=== PATIENT | female | born 1975 | race Caucasian/White ===

== ENCOUNTER 2023-03-25 07:14 | Inpatient (IN) ==
--- NOTE | 2023-03-05 12:28 | PAT Medication Instructions ---
Medication Instructions Date of Service March 05, 2023 Home Medications Medication Instructions Recorded oxycodone 5 mg tablet 5 mg PO Q6H PRN pain, severe #20 09/02/22 tabs tramadol 50 mg tablet 50 mg PO Q6H PRN pain, moderate 09/02/22 #20 tabs gabapentin 100 mg capsule (Neurontin) 200 mg PO BID gabapentin 300 mg capsule 300 mg PO QPM lamotrigine 150 mg tablet (Lamictal) 150 mg PO AMHS lamotrigine 25 mg tablet (Lamictal) 25 mg PO HS topiramate 100 mg tablet 100 mg PO AMHS topiramate 25 mg tablet 25 mg PO HS ubrogepant 50 mg tablet (Ubrelvy) 50 mg PO HS PRN donepezil 10 mg tablet (Aricept) 10 mg PO BID naproxen 500 mg tablet 500 mg PO BID verapamil 240 mg tablet,extended release 240 mg PO QPM oxycodone 5 mg tablet 5 mg PO Q6H PRN tramadol 50 mg tablet 50 mg PO Q6H PRN ASK your surgeon for instructions naproxen 500 mg tablet 500 mg PO BID DO NOT take the morning of surgery donepezil 10 mg tablet (Aricept) 10 mg PO BID Take morning of surgery With a small sip of water, OTHERWISE NOTHING TO EAT OR DRINK AFTER MIDNIGHT: gabapentin 100 mg capsule (Neurontin) 200 mg PO BID lamotrigine 150 mg tablet (Lamictal) 150 mg PO AMHS topiramate 100 mg tablet 100 mg PO AMHS oxycodone 5 mg tablet 5 mg PO Q6H PRN(if needed) tramadol 50 mg tablet 50 mg PO Q6H PRN(if needed) Take evening before surgery gabapentin 100 mg capsule (Neurontin) 200 mg PO BID gabapentin 300 mg capsule 300 mg PO QPM lamotrigine 150 mg tablet (Lamictal) 150 mg PO AMHS lamotrigine 25 mg tablet (Lamictal) 25 mg PO HS topiramate 100 mg tablet 100 mg PO AMHS topiramate 25 mg tablet 25 mg PO HS ubrogepant 50 mg tablet (Ubrelvy) 50 mg PO HS PRN(if needed) donepezil 10 mg tablet (Aricept) 10 mg PO BID verapamil 240 mg tablet,extended release 240 mg PO QPM oxycodone 5 mg tablet 5 mg PO Q6H PRN(if needed) tramadol 50 mg tablet 50 mg PO Q6H PRN(if needed) Other Notes If you have any questions please call us at [phone] or [phone] or [phone] or [phone]
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
[~2023-03-25 07:14] MED LIST: ACETAMINOPHEN 500 MG TAB PO SCH; CLINDAMYCIN/D5W 900 MG/50 ML BAG IV SCH; CeleBREX 200 MG CAP PO SCH; GABAPENTIN 900 MG DOSE PO SCH; LR 15ML/HR IV SCH
[2023-03-25] MEDS ORDERED: DEXAMETHASONE SOD INJ 4 MG/ML VIAL ONE (08:40)
[2023-03-25] MEDS ORDERED: fentaNYL citrate PF 100 MCG/2 ML VIAL ONE (08:40)
[2023-03-25] MEDS ORDERED: LIDOCAINE 2% 2 ML VIAL/AMP(20MG/ML) INFIL ONE (08:40)
[2023-03-25] MEDS ORDERED: MIDAZOLAM HCL 1 MG/ML 2ML VIAL ONE (08:40)
[2023-03-25] MEDS ORDERED: ONDANSETRON INJ 2 MG/ML 2 ML VIAL ONE ×2 (08:40→11:33)
[2023-03-25] MEDS ORDERED: ROCURONIUM BROMIDE 10 MG/ML 5 ML VIAL IV ONE (08:40)
[2023-03-25] MEDS ORDERED: PROPOFOL IV EMULSION 10 MG/ML 20 ML VIAL IV ONE (08:40)
[2023-03-25] MEDS ORDERED: ePHEDrine sulfate 50 MG/ML AMP IV PRN (09:00)
[2023-03-25] MEDS ORDERED: fentaNYL citrate PF 100 MCG/2 ML VIAL IV PRN (09:00)
[2023-03-25] MEDS ORDERED: ONDANSETRON INJ 2 MG/ML 2 ML VIAL IV PRN ×2 (09:00→13:12)
[2023-03-25] MEDS ORDERED: ATROPINE SULFATE 0.1 MG/ML 10ML SYR IV PRN (09:00)
[2023-03-25] MEDS ORDERED: PROMETHAZINE HCL 6.25 MG in SODIUM CHLORIDE 0.9% 50 ML IV PRN (09:00)
--- NOTE | 2023-03-25 09:19 | History & Physical Bridge Note ---
Date of Service March 25, 2023 History & Physical Bridge Note I have examined the patient, reviewed the History & Physical and in the interval since the performance of the History & Physical I have noted the following changes of clinical significance: no changes noted
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
[2023-03-25] MEDS ORDERED: ceFAZolin 330 MG/ML 1 GM VIAL ONE (09:23)
[2023-03-25] MEDS ORDERED: BUPIVACAINE/EPINEPHRINE 0.25% 1:200,000 30 ML VIAL ONE (09:23)
[2023-03-25] MEDS ORDERED: FLOSEAL HEMOSTATIC MATRIX 10ML TOP ONE (11:03)
[2023-03-25] MEDS ORDERED: ePHEDrine sulfate 50 MG/ML AMP ONE (11:21)
[2023-03-25] MEDS ORDERED: SUGAMMADEX SODIUM 200 MG/2 ML VIAL IV ONE (11:33)
[2023-03-25] MEDS ORDERED: SURGICEL ABSORB HEMOSTAT 2IN X 14IN TOP ONE (11:42)
--- NOTE | 2023-03-25 11:49 | Operative Report ---
Post Operative Report Pre & Post Diagnosis Operation Date: 03/25/23 08:55 Pre-Op Diagnosis: Recurrent disc herniation L5-S1. Spinal stenosis L4-L5. Post-Op Diagnosis: Same I identified the patient and participated in the time-out.: Yes Procedure Operation Date: 03/25/23 08:55 Actual Procedures #1 revision decompression bilaterally facetectomies and foraminotomies L4-L5 L5- S1. #2 posterior spinal fusion L4-L5 L5-S1. #3 placed posterior instrumentation L4-L5 L5-S1. #4 interbody fusion L4-L5 L5-S1. #5 placement of Spira 13 x 26 mm at L4-L5 and 11 x 26 mm at L5-S1. #6 placement locally harvested morselized autograft in the posterior gutters. #7 placement of I factor amount of detox in the interbody space and posterior lateral gutters. Surgeon Cruz Garcia, Musculoskeletal Physiotherapist Nadege Cote Estimated Blood Loss 150 Findings See Below Patient is 5 foot 2 weighing over 82 kg with a BMI in excess of 33. Patient's body habitus did contribute to significant technical difficulty required deeper retractors and longer instruments in order to perform her procedure. This had at least 50% increased operative time. Specimens None Indications This is a 47-year-old female who presents above-mentioned diagnosis after failing an extensive course of nonoperative care is here for surgical invention. Description of Procedure Patient met with identified informed consent obtained. Patient was then taken to the operative suite underwent patient placed in a prone position on the Liberty table top Robinson frame. All bony promises well-padded eyes inspected to ensure no external pressure placed upon the. This point the lumbar spine was prepped and draped in a sterile fashion. Sharp dissection with the assistance pericardial down to and exposing the remaining lamina and transverse processes of L4-5 and sacral ala bilaterally. From caudal septal fashion revision complete laminectomy L5 L4 was performed including medial facetectomies and foraminotomies addressing all stenosis as well as evidence of a massive disc herniation L5-S1 on the right with significant pressure on the traversing and exiting root. After complete decompression removal of fragments pedicle screws were placed in L4-L5 and S1 levels bilaterally with the assistance of fluoros copy the proper sized kalpesh placed. By way of a transforaminal approach on the right complete discectomy of L5-S1 was performed endplates curetted to subcortically bone and 11 x 26 mm Spira cage with I factor tapped in position. Then proceeded to L4-L5 again by way of entrance foraminal approach and right complete discectomy performed endplates guided to subcortically bone and a 13 x 26 mm Spira cage with I factor tapped in position. The rods were then locked in final position bilaterally. The transverse processes of L4-5 and the sacral ala burred to subcortically bone. I factor by the test and locally harvested morselized autograft was placed in the posterior gutters. 15 round RAJIV drain inserted. The incision was then closed with 1 Vicryl to fascia 2-0 Vicryl subcutaneously and 4 Monocryl for final skin closure. Steri-Strips sterile dressing placed. Patient waken taken to PACU stable condition please note spinal cord monitoring was utilized at the procedure no changes noted. Lastly Nadege Cote was present at the entire surgeon while the patient positioning complex portion of the surgery and final skin closure. I attest to the content of the Intraoperative Record and any orders documented therein. Any exceptions are noted below.
--- NOTE | 2023-03-25 12:11 | Fluoroscopy Report ---
FL lumbar spine 2-3V CLINICAL HISTORY: L5-S1 REVISION DECOMP L4-S1 FUSION COMPARISON STUDY: Lumbar spine 09/02/2022. FLUOROSCOPY TIME: 29 seconds FLUOROSCOPY IMAGES: 2 Ka,r: 26.4 mGy FINDINGS: Posterior decompression fusion from L4 through S1 with pedicle screws and rods. The hardwar e is intact. Disc spacers are in place. IMPRESSION: Fluoroscopic assistance as above. ACT 112: Negative or not required by law. Electronically signed by: Steffen Valle M.D. 03/25/2023 12:10 PM
[2023-03-25] MEDS ORDERED: DO NOT ADMINISTER PNEUMOCOCCAL VACCINE PRN (13:12)
[2023-03-25] MEDS ORDERED: ALUMINUM/MAGNESIUM SUSP 30 ML UDC PO PRN (13:12)
[2023-03-25] MEDS ORDERED: ONDANSETRON 4 MG OD TAB PO PRN (13:12)
[2023-03-25] MEDS ORDERED: bisacodyL 10 MG SUPP PR PRN (13:12)
[2023-03-25] MEDS ORDERED: oxyCODONE HCL IR 5 MG TAB (IMMEDIATE RELEASE) PO PRN (13:12)
[2023-03-25] MEDS ORDERED: DO NOT ADMINISTER FLU VACCINE PRN (13:12)
[2023-03-25] MEDS ORDERED: SOD PHOSPHATE/SOD BIPHOSPHATE ENEMA 132 ML BTL PR PRN (13:12)
[2023-03-25] MEDS ORDERED: ACETAMINOPHEN 500 MG TAB PO PRN (13:12)
[2023-03-25] MEDS ORDERED: FAMOTIDINE 20 MG TAB PO PRN (13:12)
[2023-03-25] MEDS ORDERED: PROMETHAZINE HCL 12.5 MG in SODIUM CHLORIDE 0.9% 50 ML IV PRN (13:12)
[2023-03-25] MEDS ORDERED: traMADol HCL 50 MG TABLET PO PRN (13:12)
[2023-03-25] MEDS ORDERED: METOCLOPRAMIDE HCL INJ 5 MG/ML 2 ML VIAL IV PRN (13:12)
[2023-03-25] MEDS ORDERED: NALOXONE HCL 0.4 MG/1 ML VIAL/CARP IV PRN (13:12)
[2023-03-25] MEDS ORDERED: ACETAMINOPHEN 1,000 MG/100 ML VIAL IV PRN (13:12)
[2023-03-25] MEDS ORDERED: MAGNESIUM HYDROXIDE SUSP 30 ML UDC PO PRN (13:12)
[2023-03-25] MEDS ORDERED: LORazepam 2 MG/1 ML VIAL IV PRN (13:12)
[2023-03-25] MEDS ORDERED: HYDROmorphone INJ 0.5 MG/0.5 ML SYR IV PRN (13:12)
[2023-03-25] MEDS ORDERED: LORazepam 0.5 MG TAB PO PRN (13:12)
[2023-03-25] MEDS ORDERED: diphenhydrAMINE Capsule 25 MG CAP PO PRN (13:12)
[2023-03-25] MEDS ORDERED: HYDROmorphone INJ 1 MG/ML SYRINGE IV PRN (13:12)
[2023-03-25] MEDS ORDERED: hydrOXYzine HCl 25 MG TAB PO PRN (13:12)
[2023-03-25] MEDS: LACTATED RINGER'S 1,000 ML IV SCH ×2 (13:58→17:44)
--- NOTE | 2023-03-25 14:25 | Anesthesiology Progress Note ---
Date of Service March 25, 2023 Anesthesia Post Procedure Vital Signs Vital Signs: Temp Pulse Pulse Resp BP Pulse Ox O2 Del Method 03/25/23 14:15 36.2 C L 70 16 111/62 95 Room Air 03/25/23 13:40 36.3 C L 62 16 115/71 95 Room Air 03/25/23 14:17 36.2 C L 72 16 111/67 95 Room Air 03/25/23 13:12 36.4 C L 76 16 115/72 95 Room Air 03/25/23 12:50 36.5 C 72 18 112/74 95 Room Air 03/25/23 12:40 81 14 112/70 94 Room Air 03/25/23 12:30 87 16 117/74 92 Room Air 03/25/23 12:20 68 16 122/72 96 Oxymask 03/25/23 12:10 78 19 120/73 97 Oxymask 03/25/23 12:02 36.0 C L 84 16 126/77 94 Oxymask 03/25/23 08:15 36.4 C L 85 20 141/88 H 97 Room Air O2 Flow Rate 03/25/23 14:15 03/25/23 13:40 03/25/23 14:17 03/25/23 13:12 03/25/23 12:50 03/25/23 12:40 03/25/23 12:30 03/25/23 12:20 6 03/25/23 12:10 6 03/25/23 12:02 6 03/25/23 08:15 Pain Intensity Right Lower Back: Pain Intensity: 6 Lower Back: Pain Intensity: 2 Transfer of Care Handoff Completed per policy Notes Mental Status: alert / awake / arousable Patient Amnestic to Procedure: Yes Nausea / Vomiting: adequately controlled Pain: adequately controlled Airway Patency, RR, SpO2: stable & adequate BP & HR: stable & adequate Hydration State: stable & adequate Anesthetic Complications: no major complications apparent
[2023-03-25] MEDS: CLINDAMYCIN/D5W 600 MG/50 ML BAG IV SCH (18:32)
[2023-03-25] MEDS: GABAPENTIN 300 MG CAP PO SCH (21:23)
[2023-03-25] MEDS: DOCUSATE SODIUM/SENNA 50/8.6MG TAB PO SCH (21:23)
[2023-03-25] MEDS: TOPIRAMATE 100 MG TAB PO SCH (21:24)
[2023-03-25] MEDS: TOPIRAMATE 25 MG TAB PO SCH (21:25)
[2023-03-25] MEDS: lamoTRIgine 100 MG TAB PO SCH (21:51)
[2023-03-25] MEDS: lamoTRIgine 25 MG TAB PO SCH (21:52)
[2023-03-26] MEDS: CLINDAMYCIN/D5W 600 MG/50 ML BAG IV SCH (02:15)
[2023-03-26] MEDS: LACTATED RINGER'S 1,000 ML IV SCH (05:00)
[2023-03-26] MEDS: POLYETHYLENE (MIRALAX) 17 GM PACK PO SCH ×2 (06:04→12:06)
[2023-03-26 06:29] LABS: Basophils # (auto) 0.02 K/uL (0-0.2); Basophils % (auto) 0.2 %; Eosinophils # (auto) 0.01 K/uL (0-0.50); Eosinophils % (auto) 0.1 %; Hematocrit (blood only) 31.8 % (37.0-47.0); Hemoglobin 10.5 g/dl (12.0-16.0); Immature Granulocytes # (auto) 0.06 K/uL (0.01-0.20); Immature Granulocytes % (auto) 0.5 %; Lymphocytes # (auto) 1.22 K/uL (1.2-3.4); Lymphocytes % (auto) 9.9 %; Mean Corpuscular Hemoglobin 30.2 pg (25.0-34.0); Mean Corpuscular Volume 91.4 fL (80.0-100.0); Mean Platelet Volume 9.4 fL (9.4-12.4); Monocytes # (auto) 0.74 K/uL (0.11-0.59); Neutrophils # (auto) 10.25 K/uL (1.40-6.50); Neutrophils % (auto) 83.3 %; Platelet Count 246 K/uL (130-400); RDW Coefficient of Variation 13.7 % (11.5-14.5); RDW Standard Deviation 45.9 fL (36.4-46.3); Red Blood Count 3.48 M/uL (4.20-5.40)
[2023-03-26 06:50] LABS: BUN Creatinine Ratio 12.1 (10-20); Creatinine Clr Calc Pharmacy 68.4 ml/min; Est GFR (African American) 77.6 ml/min; Est GFR (Non-African American) 66.9 ml/min
[2023-03-26] MEDS: dexAMETHasone 6 MG in SYRINGE 0 ML IV SCH (08:02)
[2023-03-26] MEDS: lamoTRIgine 100 MG TAB PO SCH ×2 (08:02→20:45)
[2023-03-26] MEDS: TOPIRAMATE 100 MG TAB PO SCH ×2 (08:03→20:44)
[2023-03-26] MEDS: GABAPENTIN 300 MG CAP PO SCH ×2 (08:03→20:45)
[2023-03-26] MEDS ORDERED: DONEPEZIL HCL 10 MG TAB PO SCH (09:00)
--- NOTE | 2023-03-26 09:57 | Orthopedic Progress Note ---
Date of Service March 26, 2023 Assessment & Plan (1) Herniated nucleus pulposus, L5-S1, right: Plan: At this time continue physical therapy monitor RAJIV operatively discharge home next few days. Admission and Anticipated Discharge Date Admission Date: March 25, 2023 Subjective Patient's back pain leg pain markedly improved Physical Exam Physical Exam: Patient is in the chair at the bedside. Is comfortable getting strength testing. Results & Data Vital Signs (Past 12 Hours) Vital Signs Temp Pulse Resp BP Pulse Ox O2 Del Method 03/26/23 07:21 36.9 C 82 20 104/64 95 Room Air 03/26/23 02:46 36.8 C 77 18 108/71 95 Room Air 03/25/23 22:31 36.7 C 79 18 106/72 94 Room Air
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
[2023-03-26] MEDS: GABAPENTIN 100 MG CAP PO SCH (12:06)
[2023-03-26] MEDS: VERAPAMIL HCL 240 MG TABCR PO SCH (12:06)
[2023-03-26] MEDS ORDERED: UBROGEPANT 100 MG TAB PO PRN (15:41)
[2023-03-26] MEDS: TOPIRAMATE 25 MG TAB PO SCH (20:44)
[2023-03-26] MEDS: DOCUSATE SODIUM/SENNA 50/8.6MG TAB PO SCH (20:45)
[2023-03-26] MEDS: lamoTRIgine 25 MG TAB PO SCH (20:46)
[2023-03-27 07:14] VITALS: BP 118/74; PULSE 60; TEMP 98.1; O2SAT 98
[2023-03-27] MEDS: TOPIRAMATE 100 MG TAB PO SCH (08:36)
[2023-03-27] MEDS: dexAMETHasone 6 MG in SYRINGE 0 ML IV SCH (08:37)
[2023-03-27] MEDS: GABAPENTIN 300 MG CAP PO SCH (08:37)
[2023-03-27] MEDS: lamoTRIgine 100 MG TAB PO SCH (08:37)
[2023-03-27] MEDS ORDERED: Nursing to Pharmacy Communication SCH (08:45)
--- NOTE | 2023-03-27 09:58 | Discharge Summary ---
Date of Service March 27, 2023 Admission HPI Per Admitting Provider This is a 47-year-old female who presents with chronic persistent back and leg pain after failing course of nonoperative care she is here for surgical invention. Principal Diagnosis Recurrent lumbar disc herniation with radiculopathy Discharge Data Allergies Allergy/AdvReac Type Severity Reaction Status Date / Time amoxicillin Allergy Severe throat Verified 03/25/23 08:03 swelling peanut Allergy Severe throat Verified 03/25/23 08:03 swelling Penicillins Allergy Severe throat Verified 03/25/23 08:03 swelling Consultations 03/25/23 13:12 Consult Hospitalist Routine Procedures Performed Operation Date: 03/25/23 08:55 Actual Procedures p L5-S1 Revision Decompression, L4-S1 Fusion, Spinal Cord Monitoring(Not Applicable) - Cruz Garcia DO Ordered Studies 03/25/23 [place] lumbar spine 2-3V Routine Hospital Course (1) Herniated nucleus pulposus, L5-S1, right: Patient underwent lumbar decompression fusion trial as well as taken to orthopedic. Labor postop and when she was up and ambulating. Postop day #2. Pain markedly improved. Expected testing. RAJIV drain decreasing probably. Pain well controlled. Socially discharged home. Discharge orders instructions found in chart for further review. Total Time Total Time Spent Total Time Spent (In Minutes): 20 minutes Discharge Plan Discharge Items Patient Disposition: Home - Self-Care Reason For Visit: POSTOP Discharge Diagnosis: Recurrent lumbar disc herniation with spinal stenosis Activity: As commented below Non-emergency contact: Primary Care Provider Call non-emergency contact if: you have any medication questions Follow-up/Referrals: Ayaan Bowman MD [Primary Care Provider] - Diet: Regular Addtl Attending Provider Instructions: ACTIVITY RECOMMENDATIONS: SELF CARE INSTRUCTIONS AFTER THORACIC/LUMBAR FUSIONS 1. You may walk to your tolerance. It is good exercise for your legs and back. Expect some back and intermittent leg aches and pains. 2. You may perform "counter-top" level activities (make a sandwich, suraj with a project, etc.). 3. No bending or lifting of more than 10 pounds or back twisting of any nature (roll like a log when turning in bed). 4. You may ride in a car for 20-30 minutes at a time. No driving until after your first visit with your doctor. 5. Frequent changes of position and restricting sitting to 30 minutes at a time will help limit the amount of back spasms and stiffness you may experience. 6. You may discontinue the use of ambulatory aids (cane, crutches, etc.) once your strength and confidence allow. 7. You may director veterinary the shower and let water strike your incision when you arrive home at least once daily. Do not take a tub bath, sit in a hot tub or go into a swimming pool until after your first recheck in the office. SPECIAL CARE INSTRUCTIONS: VERY IMPORTANT TO READ AND REVIEW A. Your surgical incision has been closed with a cosmetic suture under the skin that will dissolve in about 6 weeks. In 14 days, you can use a pair of clean scissors and cut the suture that is left outside of the skin at the ends of your incision. 1. The small skin tapes can be removed 7 days after surgery if they have not fallen off by that point. 2. You may keep the wound open to air as much as possible to promote healing after post-op day number 5 unless told otherwise by your doctor. 3. If you think the wound looks like it is becoming infected (redness or worsening drainage) and/or you are experiencing fever, chill or worsening back pain and muscle spasms, contact the office so that we may evaluate you as soon as possible. B. Complications are uncommon, but please contact us if you have any signs or symptoms of: 1. wound infection (fever higher than 102.5 degrees F, redness, separation of wound, drainage, or increasing pain from the incision) 2. blood clots in legs (pain, swelling, redness and warmth in legs) 3. urinary tract infection (fever higher than 102.5 degrees F, burning upon urination or increased frequency of urination) 4. nerve problems (inability to walk on your toes or heels, numbness, loss of bowel or bladder control) 5. any other symptoms that concern you C. Please call the office at if you have any concerns or questions about your operation or recovery. D. No smoking! Smoking drastically decreases the chance of a solid fusion. E. Do not take any anti-inflammatory medications (Indocin, Advil, Motrin, Aspirin, Naprosyn, etc.) as these may inhibit the chance of a solid fusion. Tylenol is okay to take for pain. MANAGING PAIN AFTER SPINAL SURGERY 1. Narcotic medication is intended for short-term use and will be provided for surgical pain. Surgical pain usually lasts for a period of 4-6 weeks. Narcotic medication includes Percocet, Vicodin, Darvocet, Tylenol #3 or Lortab. 2. Longer-term pain is more appropriately treated with non-narcotic medication such as Tylenol ES. 3. Muscle spasm is not appropriately treated with narcotics. Muscle relaxers such as Soma, Flexeril or Skelaxin can be used along with Tylenol ES. 4. Remember that we all live with some "aches and pains". This is not unusual or uncommon after an injury or as we get older. a. Back pain is expected and may include muscle spasms for 4 to 6 weeks after surgery. The pain should gradually improve. If the pain worsens for no apparent reason, please contact the office. b. Intermittent leg pain may also be experienced and should not be concerned about unless it worsens for no apparent reason. If so, please contact the office. 5. We will provide appropriate medication within the normal guidelines of their prescribed use. We will also be very cautious and aware of potential abuse and extended duration of patients' medication needs. a. Pain medications are for your comfort and to assist with sleep and rest so that the tissue can heal. They are not provided in order to return to normal activity and should not be used through the day. To do so or worsening pain at night can result from ongoing tissue damage and development of tolerance to the prescribed medicine. 6. Please allow 2-3 days to process refills. Prescriptions will not be mailed but must be picked up at the office. FOLLOW UP VISIT: Keep your scheduled follow-up appointment. Any questions, please call the office at . Pending Studies at Discharge: No Stand-Alone Forms: My P2[employer], Smoking Cessation Medications and DC Order Prescriptions: New tramadol 50 mg tablet 50 mg PO Q6H PRN (Reason: pain, moderate) Qty: 30 0RF oxycodone 5 mg tablet 5 mg PO Q6H PRN (Reason: pain) Qty: 30 0RF Continued topiramate [Topamax] 100 mg tablet 100 mg PO AMHS topiramate 25 mg tablet 25 mg PO HS Ubrelvy 50 mg tablet 50 mg PO HS PRN (Reason: Migraine Headache) lamotrigine [Lamictal] 25 mg tablet 25 mg PO HS gabapentin 100 mg capsule 200 mg PO DAILY Rx Instructions: takes at 1200 lamotrigine [Lamictal] 150 mg tablet 150 mg PO AMHS gabapentin 300 mg capsule 300 mg PO BID Rx Instructions: q am and pm verapamil [Calan SR] 240 mg Tablet Extended Release 240 mg PO QPM Rx Instructions: takes at 1200 donepezil [Aricept] 10 mg tablet 10 mg PO DAILY Discontinued naproxen 500 mg Tablet 500 mg PO BID Discharge Orders: Discharge Order (Routine); Ordered 03/27/23 Ordered By: Cruz Garcia Admission Data Admit Date/Time: 03/25/23 11:54 Attending Provider: Cruz Garcia Admit Provider: Cruz Garcia Primary Care Provider: Ayaan Bowman Other Providers: Edward Ramirez ; Khang Humphreys
[2023-03-27] MEDS: VERAPAMIL HCL 240 MG TABCR PO SCH (12:03)
[2023-03-27] MEDS: GABAPENTIN 100 MG CAP PO SCH (12:04)
[2023-03-27] MEDS ORDERED: DONEPEZIL HCL 10 MG TAB PO SCH (21:00)
== END 2023-03-27 12:53 | disposition home or self-care (01) | DRG 455 ==
LOC: ASU 07:14 → 3E 11:54